=== PATIENT | male | born 1950 | race Caucasian/White ===

== ENCOUNTER 2018-03-23 04:14 | Emergency (ER) | payer MEDICARE, SELFPAY ==
[~2018-03-23] VITALS: Ht 195.6 cm; Wt 83.9 kg
[2018-03-23] MEDS ORDERED: ESOM20 (05:27)
[2018-03-23] MEDS ORDERED: PENVK500 PO (05:28)
[2018-03-23] MEDS ORDERED: IBUP600 PO (05:29)
== END 2018-03-23 05:44 | disposition home or self-care (01) ==
LOC: ER 04:14
DX: K02.9 Dental caries, unspecified (principal)
CPT/HCPCS: 99282

== ENCOUNTER 2019-07-13 13:00 | Inpatient (IN) | payer MEDICARE ==
[~2019-07-13] VITALS: Ht 180.3 cm; Wt 90.7 kg
[~2019-07-13 13:00] MED LIST: ESOM20; IBUP600 PO; PENVK500 PO
[2019-07-13 13:16] LABS: PO2 Arterial 88.3 mmHg (80-100); pH Blood Arterial 7.13 (7.35-7.45)
[2019-07-13 13:21] LABS: Hematocrit 41.1 % (37.0-53.0); Hemoglobin 12.9 g/dL (13.5-17.5); Mean Corpuscular HGB 30.4 pg (26.0-34.0); Mean Corpuscular HGB Conc 31.4 g/dL (31.5-36.5); Mean Corpuscular Volume 97 fL (80-100); Mean Platelet Volume 11.5 fL (9.1-12.4); Platelet Count 157 K/mm3 (150-400); RDW Coefficient Variation 12.7 % (11.7-14.2); RDW Standard Deviation 45.3 fL (35.1-46.3); Red Blood Cell Count 4.24 M/mm3 (4.30-5.90); White Blood Cell Count 15.61 K/mm3 (4.00-11.30)
[2019-07-13 13:36] LABS: International Normalized Ratio 1.18; Prothrombin Time Results 12.5 Sec (9.7-11.5)
[2019-07-13 13:43] LABS: Anion Gap 15 mmol/L (6-16); Blood Urea Nitrogen 23 mg/dL (8-24); Bun/Creatinine Ratio 12.6 (12.0-20.0); CO2, Blood 21 mmol/L (21-32); CPK Creatine Kinase 233 U/L (39-308); Calcium, Blood 8.5 mg/dL (8.5-10.1); Chloride, Blood 102 mmol/L (98-108); Cholesterol 152 mg/dL (50-200); Creatine Kinase MB 7.5 ng/mL (0.0-3.6); Creatine Kinase MB Index 3.2 (0.0-4.0); Creatinine, Blood 1.82 mg/dL (0.60-1.20); Glomerular Filtration Rate 39 (60-); Glucose, Blood 315 mg/dL (70-99); HDL Cholesterol 38 mg/dL (>39); LDL/HDL RATIO 2.1; Low Density Lipoprotein Chol 80 mg/dL (0-110); Magnesium, Blood 2.7 mg/dL (1.6-2.4); Potassium, Blood 2.8 mmol/L (3.5-5.5); Sodium, Blood 138 mmol/L (136-145); Triglycerides 172 mg/dL (30-160); Very Low Density Lipoprot Chol 34 mg/dL (6-32)
--- NOTE | 2019-07-13 16:46 | NUR ---
CARE ASSUMED/CODE BLUE PT TO ICU 6 FROM SOLE LAYER AT 1535, LEVOPHED AT 30MCG/MIN, DOPAMINE AT 20MCG/KG/MIN, KRIDER INFUSING. CENTRAL LINE TO R GROIN, OOZING, TR BAND TO R RADIAL ACCESS SITE, ALSO OOZING. PT INTUBATED AND MECHANICALLY VENTILLATED, RT, SOLE LAYER STAFF, AND DR. PULIDO AT BEDSIDE WELL THIS RN AND ETHNOGRAPHER. DEFIB PADS IN PLACE, CARDIAC MONITORING INITIATED, PT HYPOTENSIVE WITH HR 60'S, 1MG EPI ADMINISTERED PER DR. PULIDO, HR IMMEDIATELY DROPPED TO 30'S AFTER EPI, CPR INITIATED BY THIS RN AT 1546, CODE BLUE CALLED, DR. KURTZ AND DR. NATION NOW AT BEDSIDE. TOTAL OF 5MG EPI AND 2 AMPS BICARB ADMINISTERED, CPR FOR 27 MINUTES, RT MANAGING AIRWAY. PT'S AT BEDSIDE, CODE CALLED BY DR. KURTZ AT 1613, GTT'S STOPPED. PT'S FAMILY IN TO SEE PATIENT, PASTORAL CARE AT BEDSIDE WITH FAMILY. DONOR LINE AND M.E. CONTACTED, AWAITING RESPONSES.
--- NOTE | 2019-07-13 16:52 | NUR ---
Patient in cardiac arrest, I respond to code blue and told patient's spouse, Ana is in the waiting room. I sit with Ana and she tells me about the events of this day. We go back to ICU-6 and staff is at work on patient until after Ana gives the word to stop. I comfort Ana in the patient's room then in waiting room with daughter Magalys then back in patient's room where we pray. Patient's step-son Timi comes back to view the body. I walk him out as he is ovewhelmed. I then sit in patient's room and have a quiet time with Ana and conduct a life review of patient and their marriage. I collect home info. and walk Ana to the Exit.
--- NOTE | 2019-07-13 18:41 | NUR ---
RELEASE OF BODY M.E. RETURNED PHONE CALL, BODY RELEASED. DONOR LINE NOTIFIED, CONTACT STATES OK TO RELEASE BODY TO HOME. PT EXTUBATED, LEE AND IV'S REMOVED, POST MORTEM CARE PROVIDED. CL TO R GROIN REMAINS IN PLACE, TR BAND TO R WRIST REMAINS ON D/T CONTINUED OOZING OF BLOOD. [facility] NOTIFIED AT THIS TIME PER FAMILY PREFERENCE. REPORT TO ONCOMING SHIFT.
--- NOTE | 2019-07-13 19:50 | NUR ---
JESSICA HERE TO RECEIVE BODY, ASSISTED W TRANSFER.
[2019-07-21 08:30] LABS: Calcium, Ionized (POC) 1.07 mmol/L (1.10-1.46); Chloride (POC) 100 mmol/L (98-108); Creatinine (POC) 1.9 mg/dL (0.8-1.3); Glucose (ISTAT POC) 317 mg/dL (70-99); Hemoglobin (POC) 13.3 g/dL (13.5-17.5); Potassium (POC) 2.8 mmol/L (3.5-5.5); Sodium (POC) 137 mmol/L (135-148); Total CO2 (POC) 22 mmol/L (21-32)
== END 2019-07-13 16:13 | DRG 246 ==
LOC: ER 13:00 → ICUW 13:01 → ICUE 14:03
PROVIDERS: Emergency Medicine; ADMIT Internal Medicine
PROC: 027035Z Dilation of Coronary Artery, One Artery with Two Drug-eluting Intraluminal Devices, Percutaneous Approach (ICD-10-PCS; principal; 2019-07-13)
PROC: 4A023N7 Measurement of Cardiac Sampling and Pressure, Left Heart, Percutaneous Approach (ICD-10-PCS; 2019-07-13)
PROC: B2111ZZ Fluoroscopy of Multiple Coronary Arteries using Low Osmolar Contrast (ICD-10-PCS; 2019-07-13)
PROC: 3E033XZ Introduction of Vasopressor into Peripheral Vein, Percutaneous Approach (ICD-10-PCS; 2019-07-13)
PROC: 5A1935Z Respiratory Ventilation, Less than 24 Consecutive Hours (ICD-10-PCS; 2019-07-13)
PROC: 5A12012 Performance of Cardiac Output, Single, Manual (ICD-10-PCS; 2019-07-13)
DX: I49.01 Ventricular fibrillation (principal); I21.02 ST elevation (STEMI) myocardial infarction involving left anterior descending coronary artery; J96.02 Acute respiratory failure with hypercapnia; E87.2 Acidosis; I46.2 Cardiac arrest due to underlying cardiac condition; E87.6 Hypokalemia; I25.10 Atherosclerotic heart disease of native coronary artery without angina pectoris; Z87.891 Personal history of nicotine dependence; Z92.21 Personal history of antineoplastic chemotherapy; Z85.828 Personal history of other malignant neoplasm of skin
CPT/HCPCS: 36556; 36600; 51702; 71045; 76937; 80047; 80048; 80061; 82550; 82553; 82803; 83735; 84484; 85014; 85027; 85347; 85610; 85730; 86850; 86900; 86901; 92950; 93005; 93010; 93454; 93458; 94002; 96365-59; 96367-59; 96375-59; 99152; 99153; 99285-25; C1725; C1751; C1769; C1874; C1887; C1894; C9606; J1265; J1644; J3010; J3246; J3480; J7030; J7040; J7060; Q9967